=== PATIENT | male | born 1965 | race African-American/Black ===

== ENCOUNTER → 2016-11-08 | Day surgery (SDC) | payer MEDICARE, OTHER | LOC: RAD 13:25 | PROVIDERS: ATTEND Specialist | PROC: BP08ZZZ Plain Radiography of Right Shoulder (ICD-10-PCS; principal; 2016-11-08) | DX: M25.511 Pain in right shoulder (principal) | CPT/HCPCS: 73040; 77002 ==

== ENCOUNTER → 2016-11-09 | Outpatient (CLI) | payer MEDICARE, OTHER ==
--- NOTE | 2016-11-10 12:30 | XCELERA REPORT ---
[address] [address] Lower Extremity Arterial Evaluation Name: FLORENTIN RICHARDS Age: 51 yrs Gender: Male : 1965 Patient Status: Outpatient Patient Location: Study Date: 11/09/2016 10:16 AM Procedure: A color flow and duplex scan of the lower extremity arteries was performed bilaterally with velocity and waveform anaylsis. Ankle brachial indicies performed. Reason For Study: PVD Ordering Physician: RHONDA SHEETS Performed By: Aníbal Amador Measurements and Calculations Right Left WOOD PATTERNMAKER PSV 110.0 125.0 cm/sec Prox PFA PSV -113.9 -121.5 cm/sec Dist SFA PSV -94.3 -111.0 cm/sec Prox Pop A PSV 73.3 71.1 cm/sec Dist KEATON PSV 84.4 92.1 cm/sec Dist TRASHMAN PSV -69.9 -77.2 cm/sec Murali Pedis PSV 86.4 93.2 cm/sec Right Side Arterial Evaluation Normal velocity, waveform and triphasic flow are present, from the Common Femoral artery down to the infrageniculate vessels. The ankle-brachial index is 1.12. 0 % stenosis is noted PPG's are comnpletely normal.. Left Side Arterial Evaluation Normal velocity, waveform and triphasic flow are present, from the Common Femoral artery down to the infrageniculate vessels. The ankle-brachial index is 1.14. 0 % stenosis noted. PPG's are completely normal. Interpretation Summary No hemodynamically significant lesions in the bilateral lower extremities, on duplex imaging, at rest. : RHONDA SHEETS > Cody Taveras
== END ==
LOC: SP 10:01
PROVIDERS: ATTEND Podiatrist Foot & Ankle Surgery
DX: I73.9 Peripheral vascular disease, unspecified (principal)
CPT/HCPCS: 93925

== ENCOUNTER → 2017-02-21 | Outpatient (CLI) | payer MEDICARE, OTHER | LOC: OD 16:47 | PROVIDERS: ATTEND Specialist | DX: G40.89 Other seizures (principal); Z79.899 Other long term (current) drug therapy | CPT/HCPCS: 36415; 80175 ==

== ENCOUNTER 2017-10-18 12:19 | Emergency (ER) | payer MEDICARE, OTHER ==
[2017-10-18 12:26] VITALS: BP 130/78
--- NOTE | 2017-10-18 13:15 | ER Document Report ---
ED General - General Chief Complaint: Seizure Stated Complaint: POSSIBLE SEIZURES Time Seen by Provider: 10/18/17 12:55 Mode of Arrival: Ambulatory Information source: Patient, [facility] Records Notes: This 52-year-old male patient who has a vagal nerve stimulator for seizures, and is currently wearing a right walking boot for an Achilles tendon injury. He has had an upper respiratory tract infection he picked up from grandchildren and other visitors at his house 2 weeks ago. He has been coughing quite a lot. Review of records shows in 2011 I saw him for seizures, and had him cough which caused a coughing spasm and precipitated a generalized seizure. He saw his pulmonary medicine doctor recently and was put on a course of Zithromax, and then put on amoxicillin. He has 3 days left of the amoxicillin. He did receive a prescription for prednisone 20 mg #15 tablets but he never started taking that. He does have nebulizers and inhalers at home. He went to his primary care at the [facility] today due to his ongoing bronchitis and coughing. While he was there he had a coughing fit, and slipped on the slick floor due to the walking boot that he is wearing. They thought he might have had a seizure and called 911. He did not have a seizure, he remained alert and oriented the entire time. He was not postictal. They still insisted he go by EMS to the emergency room. He is here reluctantly. TRAVEL OUTSIDE OF THE [place] IN LAST 30 DAYS: No - Related Data Allergies/Adverse Reactions: acetaminophen [From Percocet] Allergy (Verified 10/18/17 12:24) oxycodone [From Percocet] Allergy (Verified 10/18/17 12:24) Past Medical History - General Information source: Patient, [facility] Records - Social History Smoking Status: Never Smoker Cigarette use (# per day): No Chew tobacco use (# tins/day): No Smoking Education Provided: No Frequency of alcohol use: None Drug Abuse: None Occupation: Retired Lives with: Family, Spouse/Significant other Family History: Reviewed & Not Pertinent Patient has suicidal ideation: No Patient has homicidal ideation: No - Past Medical History Cardiac Medical History: Reports: Hx Hypercholesterolemia, Hx Hypertension Pulmonary Medical History: Reports: Hx Asthma, Hx Bronchitis, Hx Sleep Apnea EENT Medical History: Reports: Eyes - Glaucoma, cataracts, uveitis Neurological Medical History: Reports: Hx Seizures Endocrine Medical History: Reports: None Renal/ Medical History: Reports: None GI Medical History: Reports: None Musculoskeltal Medical History: Reports None Skin Medical History: Reports None Psychiatric Medical History: Reports: Hx Depression Past Surgical History: Reports: Hx Neurologic Surgery - Vagal nerve stimulator for seizure disorder, Hx Orthopedic Surgery - R Rotator cuff, Hx Rectal Surgery - Polyplectomy, Other - Bilateral eye surgery, probably cataract removal - Immunizations Hx Diphtheria, Pertussis, Tetanus Vaccination: No Hx Pneumococcal Vaccination: 07/12/16 Review of Systems - Review of Systems Constitutional: No symptoms reported EENT: Nose congestion, Nose discharge, Sinus pressure, Other - Hoarse voice with current URI Cardiovascular: No symptoms reported Respiratory: Cough, Short of breath, Wheezing. denies: Sputum Gastrointestinal: No symptoms reported Genitourinary: No symptoms reported Musculoskeletal: Other - Recent right Achilles tendon tear, wears a walking boot Skin: No symptoms reported Hematologic/Lymphatic: No symptoms reported Neurological/Psychological: No symptoms reported Physical Exam - Vital signs Vitals: Temp Pulse Resp BP Pulse Ox 98.5 F 76 20 130/78 H 97 10/18/17 12:25 10/18/17 12:25 10/18/17 12:25 10/18/17 12:25 10/18/17 12:25 Interpretation: Normal - General General appearance: Appears well, Alert Notes: Patient has periodic uncontrollable coughing spasms. - HEENT Head: Normocephalic, Atraumatic Eyes: Normal Pupils: PERRL - Respiratory Respiratory status: No respiratory distress Breath sounds: Nonproductive cough, Rhonchi, Wheezing Chest palpation: Normal, Subcutaneous emphysema - Cardiovascular Rhythm: Regular Heart sounds: Normal auscultation Murmur: No - Abdominal Inspection: Normal Bowel sounds: Normal Tenderness: Nontender - Back Back: Normal - Extremities General upper extremity: Normal inspection General lower extremity: Other - Walking boot on the right ankle and foot - Neurological Neuro grossly intact: Yes - Psychological Associated symptoms: Normal affect, Normal mood - Skin Skin Temperature: Warm Skin Moisture: Dry Skin Color: Normal Course - Re-evaluation Re-evalutation: 10/18/17 13:18 Discharge the patient states that he is not sure where the prednisone is in his house that he was given just recently to take if needed. Records show that he received 15 tablets of prednisone 20 mg. He does feel confident that he can find the medication back tomorrow so we will give him his prednisone dose here before he leaves. - Vital Signs Vital signs: Temp Pulse Resp BP Pulse Ox 98.5 F 76 20 130/78 H 97 10/18/17 12:25 10/18/17 12:25 10/18/17 12:25 10/18/17 12:25 10/18/17 12:25 Discharge - Discharge Clinical Impression: Bronchitis, Laryngitis, Viral upper respiratory tract infection with cough Condition: Stable Disposition: HOME, SELF-CARE Additional Instructions: Bronchitis with Bronchospasm (Wheezing): You have bronchitis with bronchospasm (wheezing). Sometimes people develop wheezing with a chest cold. This occurs either because of an underlying tendency toward asthma or because the virus itself irritates the bronchial tubes. This irritation causes cough, shortness of breath, and wheezing. Emergency treatment of bronchospasm may include adrenaline shots or bronchodilator aerosol. You may feel lightheaded and have a rapid pulse for an hour or two. Rest and get plenty of fluids. At home, we'll treat you with a bronchodilator inhaler. Corticosteroids may be required for some patients. Until you recover, avoid chemical fumes, dusts, pollens, and exercising in very cold or dry air. If you smoke, stop now! Most cases of bronchitis get better without antibiotics. We prescribe antibiotics when we believe bacteria are damaging your airways, or if there's high risk the bronchitis will worsen into pneumonia. Increase your fluid intake. A cool mist humidifier may make your lungs more comfortable. An expectorant (cough medicine that loosens phlegm) can help. Repeated episodes of bronchitis and bronchospasm may result in lung damage -- for example, chronic bronchitis, recurrent pneumonias, or emphysema. If you develop a fever, increased wheezing, chest pain, or severe shortness of breath, you should contact the doctor immediately. Laryngitis: You have laryngitis. This is an inflammation of the vocal cords which leads to inability to speak normally. Any irritation to the airway can cause laryngitis. Causes include virus infection, smoke inhalation, allergy, or even trauma due to excessive talking or shouting. Rest your voice. Any vibration of the vocal cords increases and prolongs the swelling. Humidity is helpful, especially cool mist. Avoid dust, chemical fumes, and smoke. Avoid decongestants and antihistamines -- these will make you worse. You can expect to recover completely in a few days. See the physician if new symptoms develop, such as high fever, productive cough, shortness of breath, or if you do not improve within a few days. //////////////////////////////////////////////////////////////////////////////// //////////////////////////////////////////////////////////////////////////////// ////////////////// You were given today's dose of prednisone here in the emergency room. Starting tomorrow, take 1 prednisone 20 mg tablet every 8 hours. Start taking your Tessalon Perles for cough suppression. Try taking Robitussin-DM to help suppress your cough if the prednisone and the Tessalon Perles are not enough. Drink plenty of fluids get plenty of rest. Try to limit talking as much as possible to rest your vocal cords. Use your inhaler and nebulizers as needed for wheezing. Follow-up with your doctors this week if not improving. RETURN TO THE EMERGENCY ROOM IF ANY NEW OR WORSENING SYMPTOMS.
[2017-10-18] MEDS ORDERED: PREDNISONE 20 MG TABLET PO ONE (13:18)
== END 2017-10-18 13:24 | disposition home or self-care (01) ==
LOC: ER 12:19
DX: J40 Bronchitis, not specified as acute or chronic (principal); J04.0 Acute laryngitis; J06.9 Acute upper respiratory infection, unspecified; B97.89 Other viral agents as the cause of diseases classified elsewhere; R05 Cough; W01.0XXA Fall on same level from slipping, tripping and stumbling without subsequent striking against object, initial encounter; Z79.899 Other long term (current) drug therapy
CPT/HCPCS: 99283; A9270; J7512

== ENCOUNTER 2018-07-13 10:02 | Day surgery (SDC) | payer OTHER, MEDICARE ==
[2018-07-13] MEDS ORDERED: PROPOFOL INJ 200 MG/20 ML VIAL IV ONE (11:20)
[2018-07-13 13:48] VITALS: BP 108/74
--- NOTE | 2018-07-13 14:06 | Operative Report ---
Operative Report DATE OF SURGERY: 07/13/18 Operative Report: The risks, benefits and alternatives of the procedure including the risks of bleeding, perforation requiring surgery are explained to the patient in detail and informed consent is obtained. Patient is brought back to the operating room and placed in the left, lateral decubital position. Timeout was called. Propofol medication is administered. A rectal examination is done which did not reveal any masses, tears or fissures. An Olympus videoscope was inserted into the patient's rectum. The scope was then carefully advanced all the way to the cecum. The cecum was identified by the usual anatomical landmarks including the ileocecal valve as well as appendiceal office. Photodocumentation is obtained. Scope was then sequentially pulled back via the various segments of the colon including the ascending colon, hepatic flexure , transverse colon, splenic flexure, descending colon and finally into the rectosigmoid portions of the colon. Retroflexion maneuvers performed. The risks benefits and alternatives of the procedure explained to the patient in detail and informed consent is obtained.A GIF Olympus video scope was inserted into the patient's mouth and hypopharynx, the esophagus is identified intubated and insufflated, the scope was then advanced through the esophagus stomach and duodenum, retroflexion maneuver is done the esophagus stomach and first and second portions of the duodenum examined PREOPERATIVE DIAGNOSIS: Personal history of polyp. Gastroesophageal reflux disease POSTOPERATIVE DIAGNOSIS: Internal hemorrhoids. Right colon inflammation status post biopsy. Descending colon polyp status post biopsy. Gastritis status post biopsy rule out Helicobacter pylori OPERATION: Colonoscopy with biopsy. EGD with biopsy SURGEON: ALAN SCHAFER ANESTHESIA: LMAC TISSUE REMOVED OR ALTERED: As noted above. COMPLICATIONS: None. ESTIMATED BLOOD LOSS: None. INTRAOPERATIVE FINDINGS: As noted above. PROCEDURE: Patient tolerated the procedure well. No immediate postprocedure complications are noted. Patient discharged in good condition. Discharge date 07/13/2018. Discharge diet: Regular. Discharge activity: Regular. 2-3-week follow-up to discuss findings. Patient is instructed to call the office or proceed to the emergency room should there be any further problems or questions. 5-year surveillance colonoscopy.
== END 2018-07-13 13:48 | disposition home or self-care (01) ==
LOC: OROUT 10:02
PROVIDERS: ATTEND Internal Medicine Gastroenterology
DX: Z12.11 Encounter for screening for malignant neoplasm of colon (principal); D12.4 Benign neoplasm of descending colon; K52.9 Noninfective gastroenteritis and colitis, unspecified; K64.4 Residual hemorrhoidal skin tags; Z86.010 Personal history of colon polyps; K29.50 Unspecified chronic gastritis without bleeding; K21.9 Gastro-esophageal reflux disease without esophagitis; E78.5 Hyperlipidemia, unspecified; J45.909 Unspecified asthma, uncomplicated; I10 Essential (primary) hypertension; G89.4 Chronic pain syndrome; G40.909 Epilepsy, unspecified, not intractable, without status epilepticus; G47.30 Sleep apnea, unspecified; Z99.81 Dependence on supplemental oxygen
CPT/HCPCS: 43239; 45380; 88305 ×2; J2704; 813

== ENCOUNTER → 2019-09-21 | Outpatient (CLI) | payer MEDICARE, OTHER ==
--- NOTE | 2019-09-21 16:24 | RADIOLOGY REPORT (SQ) ---
EXAM DESCRIPTION: MRI HEAD COMBO COMPLETED DATE/TIME: 09/21/2019 10:57 am REASON FOR STUDY: LOCAL-REL SYMPTC EPI W CMPLX PARTIAL SEIZ, NTRCT, W STAT EPI (G40.211) G40.211 LO EUGENIO-REL SYMPTC EPI W CMPLX PARTIAL SEIZ, NTRCT, W COMPARISON: 04/21/2015. TECHNIQUE: Multiplanar imaging includes noncontrasted T1, T2, FLAIR, and Diffusion with ADC map seq uences. Contrast enhanced T1 images. Images stored on PACS. CONTRAST TYPE AND DOSE: 20 mL Dotarem. RENAL FUNCTION: GFR > 60. LIMITATIONS: None. FINDINGS: ANATOMY: No anomalies. Normal vascular flow voids. Pituitary fossa normal. CSF SPACES: Normal size and contour. No hemorrhage. CEREBRUM: A few high-signal intensity lesions scattered throughout the white matter on FLAIR imaging with distribution suggesting chronic microvascular ischemic change. Sulci and gyri normal in size and contour. No evidence of hemorrhage, mass or extraaxial fluid collection. No enhancing lesions. POSTERIOR FOSSA: No signal alteration. No hemorrhage. No edema, masses or mass effect. Internal audit ory canals, cerebello-pontine angles, mastoids normal. DIFFUSION: Negative for acute or subacute infarction. ORBITS: No masses. Globes normal. PARANASAL SINUSES: No fluid levels. Mucosa normal. OTHER: No other significant finding. IMPRESSION: NO ENHANCING LESIONS. MINIMAL MICROVASCULAR ISCHEMIC CHANGE. OTHERWISE NORMAL STUDY. EVIDENCE OF ACUTE STROKE: NO. TECHNICAL DOCUMENTATION: JOB ID: [id number] [employer]- All Rights Reserved Reading location - IP/workstation name: [email or web address]
== END ==
LOC: RAD 09:20
PROVIDERS: ATTEND Specialist
DX: G40.211 Localization-related (focal) (partial) symptomatic epilepsy and epileptic syndromes with complex partial seizures, intractable, with status epilepticus (principal)
CPT/HCPCS: 96372; 82565; 70553; A9576

== ENCOUNTER 2019-11-29 08:25 | Observation (INO) | payer OTHER, MEDICARE ==
[2019-11-29 09:16] LABS: ABSOLUTE EOSINOPHILS # (AUTO) 0.1 10^3/uL (0.0-0.6); ABSOLUTE LYMPHOCYTES (AUTO) 2.4 10^3/uL (0.5-4.7); ABSOLUTE MONOCYTES (AUTO) 0.5 10^3/uL (0.1-1.4); ABSOLUTE NEUT (AUTO) 4.2 10^3/uL (1.7-8.2); BASOPHILS % (AUTO) 0.3 % (0-2); HEMATOCRIT 39.3 % (37.9-51.0); HEMOGLOBIN 13.1 g/dL (13.5-17.0); LYMPHOCYTES % (AUTO) 32.7 % (13-45); MEAN CORPUSCULAR HGB CONC 33.3 g/dL (32.0-36.0); MEAN CORPUSCULAR VOLUME 78 fl (80-97); MONOCYTES % (AUTO) 7.3 % (3-13); PLATELET COUNT 266 10^3/uL (150-450); RED BLOOD COUNT 5.04 10^6/uL (4.35-5.55); RED CELL DISTRIBUTION WIDTH 14.2 % (11.5-14.0); SEGMENTED NEUTROPHILS % (AUTO) 58.7 % (42-78); TOTAL CELLS COUNTED % (AUTO) 100 %; WHITE BLOOD COUNT 7.2 10^3/uL (4.0-10.5)
[2019-11-29 09:28] LABS: APPEARANCE,URINE CLEAR; BILIRUBIN,URINE NEGATIVE (NEGATIVE); COLOR,URINE YELLOW; GLUCOSE, URINE NEGATIVE (NEGATIVE); KETONES,URINE NEGATIVE (NEGATIVE); LEUKOCYTE ESTERASE,URINE NEGATIVE (NEGATIVE); NITRITE,URINE NEGATIVE (NEGATIVE); PROTEIN,URINE NEGATIVE (NEGATIVE); URINE SPECIFIC GRAVITY 1.014; UROBILINOGEN,URINE NEGATIVE mg/dL (<2.0)
[2019-11-29 09:36] LABS: ALBUMIN 3.8 g/dL (3.5-5.0); ALKALINE PHOSPHATASE 72 U/L (38-126); ANION GAP 8 (5-19); ASPARTATE AMINO TRANSFERASE 20 U/L (17-59); BILIRUBIN,TOTAL 0.4 mg/dL (0.2-1.3); BLOOD UREA NITROGEN 11 mg/dL (7-20); CALCIUM 8.9 mg/dL (8.4-10.2); CARBON DIOXIDE 28 mmol/L (22-30); CHLORIDE 104 mmol/L (98-107); GLUCOSE 140 mg/dL (75-110); POTASSIUM 3.6 mmol/L (3.6-5.0); TOTAL PROTEIN 6.9 g/dL (6.3-8.2)
--- NOTE | 2019-11-29 10:10 | RADIOLOGY REPORT (SQ) ---
EXAM DESCRIPTION: CHEST 2 VIEWS COMPLETED DATE/TIME: 11/29/2019 9:46 am REASON FOR STUDY: sob COMPARISON: PA and lateral views of the chest from 07/05/2016. EXAM PARAMETERS: NUMBER OF VIEWS: Two views. TECHNIQUE: PA and lateral views of the chest were obtained.. RADIATION DOSE: NA LIMITATIONS: none FINDINGS: LUNGS AND PLEURA: No consolidation, pleural effusion or pneumothorax. MEDIASTINUM AND HILAR STRUCTURES: No mediastinal or hilar contour abnormality. HEART AND VASCULAR STRUCTURES: The cardiac silhouette and pulmonary vasculature are within normal gonzalez its. BONES: No acute findings. HARDWARE: Vagus nerve stimulator ; the generator pack projects within the left upper hemithorax. OTHER: No other finding. IMPRESSION: No acute cardiopulmonary process. TECHNICAL DOCUMENTATION: JOB ID: [id number] 2010 [employer]- All Rights Reserved Reading location - IP/workstation name: [email or web address]
[2019-11-29] MEDS ORDERED: MAGNESIUM SULFATE/D5W 1 GM/100 ML RTUPB IV ONE (12:26)
[2019-11-29] MEDS ORDERED: IPRATROPIUM/ALBUTEROL 0.5-2.5 MG/3 ML AMPUL NEB ONE (12:26)
[2019-11-29] MEDS ORDERED: HYDROCODONE BIT/HOMATROPINE SYRUP 5 ML UDCUP PO STA (12:27)
[2019-11-29] MEDS ORDERED: HYDROCODONE BIT/HOMATROPINE 5-1.5 MG TABLET PO ONE (13:15)
--- NOTE | 2019-11-29 13:30 | RADIOLOGY REPORT (SQ) ---
EXAM DESCRIPTION: CT CHEST WITHOUT COMPLETED DATE/TIME: 11/29/2019 1:04 pm REASON FOR STUDY: bloody cough COMPARISON: PA and lateral views of the chest from 11/29/2019. TECHNIQUE: CT scan performed of the chest without intravenous contrast. Images reviewed with lung, soft tissue and bone windows. Reconstructed coronal and sagittal MPR images reviewed. All images st ored on PACS. All CT scanners at this facility use dose modulation, iterative reconstruction, and/or weight based d osing when appropriate to reduce radiation dose to as low as reasonably achievable (ALARA). [facility]: Dose Right [facility]: CareDose [facility]: Dose Right [facility]: Teradose 4D [facility]: Skyeng RADIATION DOSE: CT Rad equipment meets quality standard of care and radiation dose reduction techniq ues were employed. CTDIvol: 20.4 mGy. DLP: 775 mGy-cm. LIMITATIONS: No technical limitations. FINDINGS: LUNGS AND PLEURA: The trachea main bronchi are patent. There is no bronchiectasis, bronch ial wall thickening or segmental mucus plugging. There is no consolidation, ground-glass opacification, pleural effusion, pleural thickening, or great er than 6 mm pulmonary nodular mass. HILAR AND MEDIASTINAL STRUCTURES: Evaluation is limited due to the absence of intra venous contrast. The thoracic esophagus is patulous. There is no mediastinal mass or adenopathy. HEART AND VASCULAR STRUCTURES: Variant 2 vessel arch. The thoracic aorta is normal in caliber. Ther e is no cardiomegaly or pericardial effusion. UPPER ABDOMEN: No abnormality. THYROID AND OTHER SOFT TISSUES: The generator pack of vagus stimulator is located anterior to the lef t pectoralis major. BONES: No acute findings. HARDWARE: None in the chest. OTHER: No other findings. IMPRESSION: No acute cardiopulmonary process. TECHNICAL DOCUMENTATION: JOB ID: [id number] Quality ID # [id number]: Final reports with documentation of one or more dose reduction techniques (e.g., Au tomated exposure control, adjustment of the mA and/or kV according to patient size, use of iterative reconstruction technique) 2010 [employer]- All Rights Reserved Reading location - IP/workstation name: [email or web address] [email or web address] [email or web address]
[2019-11-29 14:18] LABS: A TYPE INFLUENZA AG NEGATIVE (NEGATIVE); B INFLUENZA AG NEGATIVE (NEGATIVE)
--- NOTE | 2019-11-29 14:20 | ER Document Report ---
ED General - General Chief Complaint: Cough Stated Complaint: COUGHING BLOOD Time Seen by Provider: 11/29/19 09:58 Primary Care Provider: SENG LOWRY PA-C [Primary Care Provider] - Follow up as needed Mode of Arrival: Ambulatory Information source: Patient Notes: Patient is a 54-year-old male presenting to the emergency department chief complaint of cough and shortness of breath. Patient states that this started approximately 2 weeks ago. Patient states that he was in [facility] at a [place] and around multiple people that were sick and coughing. Patient states that he is seen his family physician twice and had multiple adjustments to medications and instead of getting better the cough is getting worse. Patient states that he is coughing up moderate amount of blood. No one else at home is ill similarly. Patient denies nausea vomiting or diarrhea. TRAVEL OUTSIDE OF THE [place] IN LAST 30 DAYS: No - HPI Onset: Other - 2 weeks Onset/Duration: Gradual, Persistent, Worse Quality of pain: Pressure, Sharp Severity: Moderate Pain Level: 2 Associated symptoms: Hoarseness, Hurts to breath, Shortness of breath Exacerbated by: Movement, Walking, Coughing, Deep breathing Relieved by: Denies Similar symptoms previously: Yes Recently seen / treated by doctor: Yes - Related Data Allergies/Adverse Reactions: oxycodone Allergy (Unknown, Verified 11/29/19 08:35) Past Medical History - General Information source: Patient - Social History Smoking Status: Never Smoker Frequency of alcohol use: None Drug Abuse: None Lives with: Family Family History: Reviewed & Not Pertinent Patient has suicidal ideation: No Patient has homicidal ideation: No - Past Medical History Cardiac Medical History: Reports: Hx Coronary Artery Disease, Hx Hypercholesterolemia, Hx Hypertension Denies: Hx Heart Attack Pulmonary Medical History: Reports: Hx Asthma, Hx Pneumonia, Hx Sleep Apnea Denies: Hx Bronchitis, Hx COPD Neurological Medical History: Reports: Hx Seizures. Denies: Hx Cerebrovascular Accident Renal/ Medical History: Denies: Hx Peritoneal Dialysis Musculoskeletal Medical History: Reports Hx Arthritis Psychiatric Medical History: Reports: Hx Depression Past Surgical History: Reports: Hx Neurologic Surgery - Vagal nerve stimulator for seizure disorder, Hx Orthopedic Surgery - R Rotator cuff, Hx Rectal Surgery - Polyplectomy, Other - Bilateral eye surgery, probably cataract removal. Denies: Hx Pacemaker - Immunizations Hx Diphtheria, Pertussis, Tetanus Vaccination: No Hx Pneumococcal Vaccination: 07/12/16 Review of Systems - Review of Systems Notes: REVIEW OF SYSTEMS: CONSTITUTIONAL : Per HPI EENT: Denies eye, ear, throat, or mouth pain or symptoms. Denies nasal or sinus congestion. CARDIOVASCULAR: Denies chest pain. RESPIRATORY: Per HPI GASTROINTESTINAL: Denies abdominal pain. Denies nausea, vomiting, or diarrhea. Denies constipation. GENITOURINARY: Denies difficulty urinating, painful urination, burning, f requency, or blood in urine. MUSCULOSKELETAL: Denies neck or back pain or joint pain or swelling. SKIN: Denies rash or skin lesions. HEMATOLOGIC : Denies easy bruising or bleeding. NEUROLOGICAL: Denies altered mental status or loss of consciousness. Denies headache. Denies weakness or paralysis or loss of use of either side. Denies problems with gait or speech. Denies sensory or motor loss. PSYCHIATRIC: Denies suicidal or homicidal ideations 10 Systems are negative unless otherwise specified above Physical Exam - Vital signs Vitals: Temp Pulse Resp BP Pulse Ox 97.7 F 80 24 H 154/81 H 95 11/29/19 08:28 11/29/19 08:28 11/29/19 08:28 11/29/19 08:28 11/29/19 08:28 - Notes Notes: PHYSICAL EXAMINATION: GENERAL: Patient is alert and oriented in mild to moderate discomfort secondary to shortness of breath and cough HEAD: Atraumatic, normocephalic. EYES: Pupils equal round and reactive to light, extraocular movements intact, sclera anicteric, conjunctiva are normal. ENT: nares patent, oropharynx clear without exudates. Moist mucous membranes. NECK: Normal range of motion, supple without lymphadenopathy, no appreciable JVD LUNGS: Lungs demonstrate wheezing in all baltazar both inspiratory and expiratory deep inspiration does elicit a cough response which is paroxysmal HEART: Regular rate and rhythm without murmurs ABDOMEN: Soft, nontender, normal bowel sounds. No guarding, no rebound. No masses appreciated. EXTREMITIES: Active full range of motion, no pitting or edema. No cyanosis. 2+ pulses x4 NEUROLOGICAL: No focal neurological deficits. Moves all extremities spontaneously and on command. SKIN: Warm, Dry, and intact. Normal turgor, no rashes or lesions noted. Course - Re-evaluation Re-evalutation: 11/29/19 14:18 Patient has been reevaluated multiple times while in the emergency department. Labs EKG and radiologic studies were initially reviewed by me. Discussing with the patient his recent travel history and sick exposures concern for coronavirus did come to mind I have spoken with Dr. Lopez infectious disease she requested a repeat influenza test in the emergency department and is in agreement with admission and follow-up through health department for ascertaining the need for testing for coronavirus. Patient is agreeable with care plan. Droplet and respiratory isolation has been initiated after discussing the case with the patient. CT of the chest as well as chest x-ray do not show any significant findings. Patient has been given DuoNeb x1 has been taking steroids at home is given Hycodan tablet in the emergency department as well as a gram of mag sulfate IV to assist with suppressing the cough and easing the respiratory distress. I have discussed the case with the hospitalist and he is agreeable with adm ission for obs to a medical floor. - Vital Signs Vital signs: Temp Pulse Resp BP Pulse Ox 97.7 F 80 24 H 147/92 H 97 11/29/19 08:28 11/29/19 08:28 11/29/19 08:28 11/29/19 11:01 11/29/19 11:01 - Laboratory Result Diagrams: 11/29/19 09:00 11/29/19 09:00 Laboratory results interpreted by me: 11/29/19 11/29/19 11/29/19 09:00 09:00 09:00 Hgb 13.1 L MCV 78 L MCH 26.0 L RDW 14.2 H Glucose 140 H Urine Blood SMALL H - Diagnostic Test Radiology reviewed: Reports reviewed - EKG Interpretation by Me EKG shows normal: Sinus rhythm Rate: Normal Rhythm: NSR Additional EKG results interpreted by me: 11/29/19 14:18 EKG is interpreted by me demonstrates sinus rhythm 76 bpm there is left axis deviation there is no ectopy no ST elevation no old EKG for comparison. Critical Care Note - Critical Care Note Total time excluding time spent on procedures (mins): 40 Comments: Please allow 40 minutes of critical care time exclusive of separately billable procedures for medical management consultation with patient and adjunct providers and care for this respiratory patient. Discharge - Discharge Clinical Impression: Bronchitis, Hemoptysis Condition: Fair Disposition: ADMITTED OBSERVATION Admitting Provider: Anjana (Hospitalist) Unit Admitted: Medical Floor Referrals: SENG LOWRY PA-C [Primary Care Provider] - Follow up as needed
[2019-11-29] MEDS ORDERED: ONDANSETRON HCL INJ/PF 4 MG/2 ML SDV IV PRN (16:04)
[2019-11-29] MEDS ORDERED: NORMAL SALINE 1000 ML 1,000 ML IV ONE (16:14)
[2019-11-29] MEDS ORDERED: AZITHROMYCIN 250 MG TABLET PO ONE (16:18)
--- NOTE | 2019-11-29 16:33 | PDOC H&P ---
History of Present Illness Admission Date/PCP: 11/29/19 14:29 SENG LOWRY PA-C Patient complains of: hemoptysis, cough History of Present Illness: FLORENTIN RICHARDS is a 54 year old male asthma, seasonal allergies, BANDAR on CPAP, epilepsy, headaches and Botox, hypertension, hyperlipidemia, who presents to the hospital with complaints of persistent cough. Patient has been having nonproductive cough for the past 10 days with sputum production and developed hemoptysis yesterday. Patient claims he was recently taking a trip to [place] and went to the [facility] with his and subsequently became sick on return to [place]. Patient denies any other trips to any other locations recently. Patient admitted to initially having some fevers and chills which have both resolved at this time but the cough has persisted. He had tried Tessalon Perls, prednisone 60 mg for 3 days outpatient with his primary care provider but without subsequent improvement. Did develop some dyspnea a few days ago as well. Past Medical History Cardiac Medical History: Reports: Hyperlipidema, Hypertension Denies: Myocardial Infarction Pulmonary Medical History: Reports: Asthma, Pneumonia, Sleep Apnea Denies: Bronchitis, Chronic Obstructive Pulmonary Disease (COPD) Neurological Medical History: Reports: Seizures Musculoskeltal Medical History: Reports: Arthritis Hematology: Denies: Anemia Past Surgical History Past Surgical History: Reports: Orthopedic Surgery - R Rotator cuff, Other - Bilateral eye surgery, probably cataract removal Denies: Pacemaker Social History Lives with: Family Smoking Status: Never Smoker Frequency of Alcohol Use: None Hx Recreational Drug Use: No - Advance Directive Resuscitation Status: Full Code Family History Family History: Hypertension Parental Family History Reviewed: Yes Children Family History Reviewed: NA Sibling(s) Family History Reviewed.: NA Medication/Allergy Home Medications: Lamictal 400 mg PO QPM 12/02/11 Vimpat 40 mg PO AC 12/02/11 Amlodipine Besylate/Benazepril [Lotrel 10-20 mg Capsule] 1 cap PO QPM 08/02/16 Brimonidine Tartrate [Alphagan 0.2% Oph Soln 5 ml] 1 drop OP DAILY PRN 08/02/16 Budesonide/Formoterol Fumarate [Symbicort HFA 160-4.5 mcg Inhaler 6 gm] 2 inhaler IN BID 08/02/16 Dorzolamide HCl [Trusopt Plus 2% Oph Soln 10 ml] 200 drop OP BID 08/02/16 Rosuvastatin Calcium [Crestor 10 mg Tablet] 10 mg PO QPM 08/02/16 Allergies/Adverse Reactions: oxycodone Allergy (Unknown, Verified 11/29/19 08:35) Review of Systems Constitutional: ABSENT: fatigue Eyes: ABSENT: visual disturbances Nose, Mouth, and Throat: ABSENT: headache(s) Cardiovascular: ABSENT: chest pain Respiratory: PRESENT: cough, dyspnea, hemoptysis, sputum Gastrointestinal: ABSENT: abdominal pain, nausea, vomiting Genitourinary: ABSENT: dysuria Integumentary: ABSENT: diaphoresis Neurological: ABSENT: confusion Psychiatric: ABSENT: anxiety Endocrine: ABSENT: polyuria Allergic/Immunologic: PRESENT: seasonal rhinorrhea Physical Exam Vital Signs: Temp Pulse Resp BP Pulse Ox 98.2 F 80 24 H 147/92 H 97 11/29/19 14:25 11/29/19 08:28 11/29/19 08:28 11/29/19 11:01 11/29/19 11:01 Intake & Output 11/28/19 11/29/19 11/30/19 06:59 06:59 06:59 Intake Total 100 Balance 100 Weight 135 kg General appearance: PRESENT: no acute distress, cooperative Head exam: PRESENT: normocephalic Eye exam: PRESENT: EOMI Mouth exam: PRESENT: neck supple Neck exam: ABSENT: JVD Respiratory exam: PRESENT: clear to auscultation saman, unlabored. ABSENT: tachypnea, wheezes Cardiovascular exam: PRESENT: RRR, +S1, +S2. ABSENT: tachycardia GI/Abdominal exam: PRESENT: normal bowel sounds, soft. ABSENT: rebound, rigid, tenderness Extremities exam: ABSENT: pedal edema Neurological exam: PRESENT: alert, awake, oriented to person, oriented to place, oriented to time, oriented to situation Psychiatric exam: ABSENT: agitated, anxious Focused psych exam: ABSENT: pressured speech Skin exam: ABSENT: dry Results Laboratory Results: 11/29/19 09:00 11/29/19 09:00 11/29/19 11/29/19 11/29/19 09:00 09:00 09:00 WBC 7.2 RBC 5.04 Hgb 13.1 L Hct 39.3 MCV 78 L MCH 26.0 L MCHC 33.3 RDW 14.2 H Plt Count 266 Seg Neutrophils % 58.7 Sodium 140.1 Potassium 3.6 Chloride 104 Carbon Dioxide 28 Anion Gap 8 BUN 11 Creatinine 0.78 Est GFR ( Amer) > 60 Glucose 140 H Calcium 8.9 Total Bilirubin 0.4 AST 20 Alkaline Phosphatase 72 Total Protein 6.9 Albumin 3.8 Urine Color YELLOW Urine Appearance CLEAR Urine pH 6.0 Ur Specific [place] 1.014 Urine Protein NEGATIVE Urine Glucose (UA) NEGATIVE Urine Ketones NEGATIVE Urine Blood SMALL H Urine Nitrite NEGATIVE Ur Leukocyte Esterase NEGATIVE Urine WBC (Auto) 1 Urine RBC (Auto) 3 Impressions: Chest X-Ray 11/29/19 00:00 IMPRESSION: No acute cardiopulmonary process. Chest CT 11/29/19 12:26 IMPRESSION: No acute cardiopulmonary process. Assessment and Plan - Diagnosis (1) Acute bronchitis Qualifiers: Bronchitis organism: unspecified organism Qualified Code(s): J20.9 - Acute bronchitis, unspecified Is this a current diagnosis for this admission?: Yes Plan: Hemoptysis is likely 2/2 acute bronchitis possibly bacterial given duration. Will hydrate patient with IV fluids in place and antitussive medications with Robitussin-DM and codeine. Azithromycin for 5-day course p.o. Steroids I reviewed CT chest image which shows no active disease in the lungs Patient does not need isolation Quantify hemoptysis with graduated cup Will observe overnight (2) Hemoptysis Is this a current diagnosis for this admission?: Yes Plan: Likely secondary to acute bronchitis. Plan as above. (3) Asthma, chronic Qualifiers: Asthma severity: unspecified severity Asthma persistence: unspecified A sthma complication type: with acute exacerbation Qualified Code(s): J45.901 - Unspecified asthma with (acute) exacerbation Is this a current diagnosis for this admission?: Yes Plan: Noted to be wheezing in the emergency home by ER provider. Did receive some breathing treatments as well as 125 mg of Solu-Medrol and magnesium sulfate. Currently no wheezing. Will put on frequent nebulizer treatments for possible exacerbation though wheezing is improved at this time. Already receiving steroids for bronchitis. (4) Hypertension Qualifiers: Hypertension type: essential hypertension Qualified Code(s): I10 - Essential (primary) hypertension Is this a current diagnosis for this admission?: Yes Plan: Continue patient's home medications once medication reconciliation is completed. (5) BANDAR on CPAP Is this a current diagnosis for this admission?: Yes Plan: Nocturnal CPAP (6) Epilepsy Is this a current diagnosis for this admission?: Yes Plan: We will resume patient's antiepileptics - Time Time Spent with patient: 35 or more minutes
[2019-11-29] MEDS: GUAIFENESIN/D-METHORPHAN (200-20 MG) SYRUP 10 ML PO SCH ×2 (17:16→22:42)
[2019-11-29] MEDS: CODEINE SULF 30 MG TABLET PO SCH (17:16)
[2019-11-29] MEDS: IPRATROPIUM/ALBUTEROL 0.5-2.5 MG/3 ML AMPUL NEB SCH (19:41)
--- NOTE | 2019-11-29 19:43 | EKG REPORT ---
SEVERITY:- ABNORMAL ECG - SINUS RHYTHM LEFT ANTERIOR FASCICULAR BLOCK BORDERLINE T ABNORMALITIES, INFERIOR LEADS : Confirmed by: Elda Daniel MD 29-Nov-2019 19:43:03
[2019-11-29] MEDS: NORMAL SALINE 1000 ML 1,000 ML IV PRN (19:46)
[2019-11-29] MEDS ORDERED: LORAZEPAM 1 MG TABLET PO PRN (21:13)
[2019-11-29] MEDS ORDERED: POLYVINYL ALCOHOL 1.4% OPH SOLN 15 ML OU PRN (21:13)
[2019-11-29] MEDS ORDERED: AMLODIPINE BESYLATE 10 MG TABLET PO SCH (22:00)
[2019-11-29] MEDS ORDERED: BENAZEPRIL HCL 20 MG TABLET PO SCH (22:00)
[2019-11-29] MEDS: FLUTICASONE NASAL SPRAY 50 MCG/SPRY 120 SPRAY/16 GM NASL SCH (22:38)
[2019-11-30] MEDS: CODEINE SULF 30 MG TABLET PO SCH ×3 (00:18→11:08)
[2019-11-30] MEDS: IPRATROPIUM/ALBUTEROL 0.5-2.5 MG/3 ML AMPUL NEB SCH ×2 (01:25→08:39)
[2019-11-30] MEDS ORDERED: PANTOPRAZOLE SODIUM 40 MG TABLET.DR PO SCH (08:00)
[2019-11-30 09:38] VITALS: BP 128/82
[2019-11-30] MEDS ORDERED: LAMOTRIGINE 100 MG TABLET PO SCH ×2 (10:00→22:00)
[2019-11-30] MEDS ORDERED: AZITHROMYCIN 250 MG TABLET PO SCH (10:00)
[2019-11-30] MEDS ORDERED: VALACYCLOVIR HCL 500 MG TABLET PO SCH (10:00)
[2019-11-30] MEDS ORDERED: METHYLPREDNISOLONE INJ 40 MG/1 ML SDV IV SCH (10:00)
[2019-11-30] MEDS ORDERED: PREDNISOLONE ACETATE 1% OPH SUSP 5 ML OU SCH (10:00)
[2019-11-30] MEDS: FLUTICASONE NASAL SPRAY 50 MCG/SPRY 120 SPRAY/16 GM NASL SCH (11:07)
[2019-11-30] MEDS: GUAIFENESIN/D-METHORPHAN (200-20 MG) SYRUP 10 ML PO SCH (11:20)
[2019-11-30] MEDS: NORMAL SALINE 1000 ML 1,000 ML IV PRN (11:23)
--- NOTE | 2019-11-30 12:48 | PDOC DISCHARGE SUMMARY ---
Impression - Admit/DC Date/PCP Admission Date/Primary Care Provider: 11/29/19 14:29 SENG LOWRY PA-C Discharge Date: 11/30/19 - Discharge Diagnosis (1) Acute bronchitis Is this a current diagnosis for this admission?: Yes (2) Hemoptysis Is this a current diagnosis for this admission?: Yes (3) Asthma, chronic Is this a current diagnosis for this admission?: Yes (4) Hypertension Is this a current diagnosis for this admission?: Yes (5) BANDAR on CPAP Is this a current diagnosis for this admission?: Yes (6) Epilepsy Is this a current diagnosis for this admission?: Yes - Additional Information Resuscitation Status: Full Code Discharge Diet: As Tolerated Discharge Activity: Activity As Tolerated Referrals: [facility] [NO LOCAL MD] - 12/07/19 8:30 am [facility] Prescriptions: Codeine Sulf [Codeine Sulfate 30 mg Tablet] 30 mg PO BID #5 tablet Guaifenesin/D-Methorphan Hb [Robitussin-Dm Syrup 10 ml Udcup] 10 ml PO QID #200 ml Azithromycin [Zithromax 250 mg Tablet] 250 mg PO DAILY #3 tablet Home Medications: Vimpat 300 mg PO DAILY 12/02/11 Amlodipine Besylate/Benazepril [Lotrel 10-20 mg Capsule] 1 cap PO QPM 08/02/16 Rosuvastatin Calcium [Crestor 10 mg Tablet] 10 mg PO QPM 08/02/16 Albuterol Sulfate [Proair HFA Inhalation Aerosol 8.5 gm MDI] 2 puff IH Q4HP PRN 11/29/19 Albuterol Sulfate [Ventolin 0.083% Neb 2.5 mg/3 mL Ampul] 1 vial NEB BIDP PRN 11/29/19 Diazepam [Diastat Acudial 20 mg/4 ml Rectal Gel] 20 mg HI ASDIR PRN 11/29/19 Donepezil HCl 10 mg PO DAILY 11/29/19 Epinephrine [Epipen] 0.3 mg IJ ASDIR PRN 11/29/19 Fexofenadine HCl [Alecia Allergy] 180 mg PO DAILY 11/29/19 Fluticasone Propionate [Flonase Nasal Roma 50 Mcg/Roma 16 gm] 1 spray NASL Q12 11/29/19 Ibuprofen [Ibu] 800 mg PO TID 11/29/19 Lorazepam [Ativan 1 mg Tablet] 1 mg PO TIDP PRN 11/29/19 Pantoprazole Sodium [Protonix [address] Tablet] 40 mg PO QAM 11/29/19 Polyvinyl Alcohol [Liquitears 1.4% Ophth Soln 15 ml] 1 drop OU DAILYP PRN 11/29/19 Potiga 300 mg PO TID 11/29/19 Prednisolone Acetate [Pred Forte] 1 drop OU BID 11/29/19 Valacyclovir HCl [Valtrex 500 mg Tablet] 500 mg PO DAILY 11/29/19 Vilazodone HCl [Viibryd] 40 mg PO BID 11/29/19 Azithromycin [Zithromax 250 mg Tablet] 250 mg PO DAILY #3 tablet 11/30/19 Codeine Sulf [Codeine Sulfate 30 mg Tablet] 30 mg PO BID #5 tablet 11/30/19 Guaifenesin/D-Methorphan Hb [Robitussin-Dm Syrup 10 ml Udcup] 10 ml PO QID #200 ml 11/30/19 History of Present Illiness History of Present Illness: FLORENTIN RICHARDS is a 54 year old male asthma, seasonal allergies, BANDAR on CPAP, epilepsy, headaches and Botox, hypertension, hyperlipidemia, who presents to the hospital with complaints of persistent cough. Patient has been having nonproductive cough for the past 10 days with sputum production and developed hemoptysis yesterday. Patient claims he was recently taking a trip to [place] and went to the [facility] with his and subsequently became sick on return to [place]. Patient denies any other trips to any other locations recently. Patient admitted to initially having some fevers and chills which have both resolved at this time but the cough has persisted. He had tried Tessalon Perls, prednisone 60 mg for 3 days outpatient with his primary care provider but without subsequent improvement. Did develop some dyspnea a few days ago as well. Hospital Course Hospital Course: Patient was admitted for evaluation of hemoptysis. Patient was reported to be wheezing in the ER with suspicion of asthma exacerbation. He received Solu- Medrol in the ER and placed on nebulizer treatments. On my examinations patient did not have any wheezing both on admission and today. Patient's major issue which is his hemoptysis and persistent cough is likely secondary to acute bronchitis likely bacterial given length/duration and airway irritation from coughing aggressively as well as from inflammation which led to his hemoptysis. Patient is hemoptysis was quantified from yesterday to today showing very minimal amount of hemoptysis in graduated cup. Patient did have a chest CT done which was negative. Influenza was negative. Patient's vitals remained stable and patient is cleared for discharge today. Of note patient notes improvement of his coughing after being hydrated with some IV fluids and given Robitussi n/dextromethorphan with some doses of codeine for antitussive effect. patient is being treated for his acute bronchitis with azithromycin, and encouraged to use his inhalers about 2-3 times a day for the next 3 days and with some Robitussin-DM and a few doses of codeine to help with cough suppression. He has been encouraged to stay hydrated while at home. Patient will follow-up with his primary care provider for further care. Patient does have some steroids at home which she will take for a few more days. His asthma exacerbation seems to very minimal as no recurrent wheezing throughout admission. Physical Exam Vital Signs: Temp Pulse Resp BP Pulse Ox 97.6 F 77 15 128/82 H 95 11/30/19 08:00 11/30/19 08:40 11/30/19 08:40 11/30/19 08:00 11/30/19 08:40 Intake & Output 11/29/19 11/30/19 12/01/19 06:59 06:59 06:59 Intake Total 2360 Balance 2360 Weight 135.8 kg General appearance: PRESENT: no acute distress, cooperative Respiratory exam: PRESENT: clear to auscultation saman, unlabored. ABSENT: tachypnea, wheezes Cardiovascular exam: PRESENT: +S1, +S2 Neurological exam: PRESENT: alert, awake, oriented to person, oriented to place, oriented to time Results Laboratory Results: WBC 7.2 10^3/uL (4.0-10.5) 11/29/19 09:00 RBC 5.04 10^6/uL (4.35-5.55) 11/29/19 09:00 Hgb 13.1 g/dL (13.5-17.0) L 11/29/19 09:00 Hct 39.3 % (37.9-51.0) 11/29/19 09:00 MCV 78 fl (80-97) L 11/29/19 09:00 MCH 26.0 pg (27.0-33.4) L 11/29/19 09:00 MCHC 33.3 g/dL (32.0-36.0) 11/29/19 09:00 RDW 14.2 % (11.5-14.0) H 11/29/19 09:00 Plt Count 266 10^3/uL (150-450) 11/29/19 09:00 Lymph % (Auto) 32.7 % (13-45) 11/29/19 09:00 Schley % (Auto) 7.3 % (3-13) 11/29/19 09:00 Eos % (Auto) 1.0 % (0-6) 11/29/19 09:00 Baso % (Auto) 0.3 % (0-2) 11/29/19 09:00 Absolute Neuts (auto) 4.2 10^3/uL (1.7-8.2) 11/29/19 09:00 Absolute Lymphs (auto) 2.4 10^3/uL (0.5-4.7) 11/29/19 09:00 Absolute Monos (auto) 0.5 10^3/uL (0.1-1.4) 11/29/19 09:00 Absolute Eos (auto) 0.1 10^3/uL (0.0-0.6) 11/29/19 09:00 Absolute Basos (auto) 0.0 10^3/uL (0.0-0.2) 11/29/19 09:00 Seg Neutrophils % 58.7 % (42-78) 11/29/19 09:00 Sodium 140.1 mmol/L (137-145) 11/29/19 09:00 Potassium 3.6 mmol/L (3.6-5.0) 11/29/19 09:00 Chloride 104 mmol/L (98-107) 11/29/19 09:00 Carbon Dioxide 28 mmol/L (22-30) 11/29/19 09:00 Anion Gap 8 (5-19) 11/29/19 09:00 BUN 11 mg/dL (7-20) 11/29/19 09:00 Creatinine 0.78 mg/dL (0.52-1.25) 11/29/19 09:00 Est GFR ( Amer) > 60 (>60) 11/29/19 09:00 Est GFR (MDRD) Non-Af > 60 (>60) 11/29/19 09:00 Glucose 140 mg/dL (75-110) H 11/29/19 09:00 Calcium 8.9 mg/dL (8.4-10.2) 11/29/19 09:00 Total Bilirubin 0.4 mg/dL (0.2-1.3) 11/29/19 09:00 Direct Bilirubin 0.0 mg/dL (0.0-0.4) 11/29/19 09:00 Neonat Total Bilirubin Not Reportable 11/29/19 09:00 Neonat Direct Bilirubin Not Reportable 11/29/19 09:00 Neonat Indirect Bili Not Reportable 11/29/19 09:00 AST 20 U/L (17-59) 11/29/19 09:00 ALT 20 U/L (<50) 11/29/19 09:00 Alkaline Phosphatase 72 U/L (38-126) 11/29/19 09:00 Total Protein 6.9 g/dL (6.3-8.2) 11/29/19 09:00 Albumin 3.8 g/dL (3.5-5.0) 11/29/19 09:00 Urine Color YELLOW 11/29/19 09:00 Urine Appearance CLEAR 11/29/19 09:00 Urine pH 6.0 (5.0-9.0) 11/29/19 09:00 Ur Specific [place] 1.014 11/29/19 09:00 Urine Protein NEGATIVE mg/dL (NEGATIVE) 11/29/19 09:00 Urine Glucose (UA) NEGATIVE mg/dL (NEGATIVE) 11/29/19 09:00 Urine Ketones NEGATIVE mg/dL (NEGATIVE) 11/29/19 09:00 Urine Blood SMALL (NEGATIVE) H 11/29/19 09:00 Urine Nitrite NEGATIVE (NEGATIVE) 11/29/19 09:00 Urine Bilirubin NEGATIVE (NEGATIVE) 11/29/19 09:00 Urine Urobilinogen NEGATIVE mg/dL (<2.0) 11/29/19 09:00 Ur Leukocyte Esterase NEGATIVE (NEGATIVE) 11/29/19 09:00 Urine WBC (Auto) 1 /HPF 11/29/19 09:00 Urine RBC (Auto) 3 /HPF 11/29/19 09:00 Squamous Epi Cells Auto <1 /HPF 11/29/19 09:00 Urine Mucus (Auto) RARE /LPF 11/29/19 09:00 Urine Ascorbic Acid NEGATIVE (NEGATIVE) 11/29/19 09:00 Influenza A (Rapid) NEGATIVE (NEGATIVE) 11/29/19 13:31 Influenza B (Rapid) NEGATIVE (NEGATIVE) 11/29/19 13:31 Impressions: Chest X-Ray 11/29/19 00:00 IMPRESSION: No acute cardiopulmonary process. Chest CT 11/29/19 12:26 IMPRESSION: No acute cardiopulmonary process. Plan Time Spent: Less than 30 Minutes Stroke Is this a Stroke Patient?: No Acute Heart Failure - Is this a Heart Failure Patient?: No
== END 2019-11-30 13:40 | disposition home or self-care (01) ==
LOC: ER 08:25 → EH 14:29 → 4N 21:02
PROVIDERS: ADMIT Internal Medicine; ATTEND Internal Medicine
DX: J20.9 Acute bronchitis, unspecified (principal); R04.2 Hemoptysis; J45.909 Unspecified asthma, uncomplicated; I10 Essential (primary) hypertension; G47.33 Obstructive sleep apnea (adult) (pediatric); G40.909 Epilepsy, unspecified, not intractable, without status epilepticus; J30.2 Other seasonal allergic rhinitis; E78.5 Hyperlipidemia, unspecified; I25.10 Atherosclerotic heart disease of native coronary artery without angina pectoris; Z79.899 Other long term (current) drug therapy; Z97.8 Presence of other specified devices
CPT/HCPCS: 93005; 94640 ×3; 99291; 96361; 96365; 36415; 87070; 87205; 85025; 87077; 80053; 81001; 87186; 87804; 71046; 71250; 93010; 94660 ×2; G0378 ×3; J3490 ×8; J2920; J3475; J7030 ×2; J7620 ×2

== ENCOUNTER → 2019-12-06 | Outpatient (CLI) | payer OTHER ==
--- NOTE | 2019-12-06 14:50 | RADIOLOGY REPORT (SQ) ---
EXAM DESCRIPTION: CT LUMBAR SPINE WITHOUT COMPLETED DATE/TIME: 12/06/2019 1:04 pm REASON FOR STUDY: M51.36 OTHER INTERVERTEBRAL DISC DEGENERATION, LUMBAR REGION M51.36 OTHER INTERVE RTEBRAL DISC DEGENERATION, LUMBAR REGION COMPARISON: None. TECHNIQUE: Axial images acquired through the lumbar spine without intravenous contrast. Images revi ewed with lung, soft tissue and bone windows. Reconstructed coronal and sagittal MPR images reviewed . All images stored on PACS. All CT scanners at this facility use dose modulation, iterative reconstruction, and/or weight based d osing when appropriate to reduce radiation dose to as low as reasonably achievable (ALARA). [facility]: Dose Right [facility]: CareDose [facility]: Dose Right [facility]: Teradose 4D [facility]: [employer] RADIATION DOSE: CT Rad equipment meets quality standard of care and radiation dose reduction techniq ues were employed. CTDIvol: 32.8 mGy. DLP: 1020 mGy-cm. mGy. LIMITATIONS: None. FINDINGS: SEGMENTATION: Normal. No transitional anatomy. ALIGNMENT: Normal. VERTEBRAL BODIES: No fractures. No dislocation. No acute findings. DISCS: 15 12-L1, L1-2, L2-3, and L3-4 levels are unremarkable. No significant central canal or ely inal stenosis. At L4-5, minimal posterior disc bulging, mild bilateral facet and ligament hypertrophy is present wit hout significant central or foraminal stenosis. At L5-S1, moderate bilateral facet arthropathy is present right greater than left. No central or for aminal stenosis. PEDICLES, TRANSVERSE PROCESSES: No fractures. No dislocation. No acute findings. FACETS, POSTERIOR ELEMENTS: No fractures. No dislocation. HARDWARE: None in the spine. VISUALIZED RIBS: No fractures. SOFT TISSUES: No significant or acute finding in adjacent soft tissues. OTHER: Mild bilateral SI joint vacuum phenomenon and bony spurring. IMPRESSION: Facet arthropathy at L4-5 and L5-S1. Bilateral SI joint arthropathy TECHNICAL DOCUMENTATION: JOB ID: [id number] Quality ID # [id number]: Final reports with documentation of one or more dose reduction techniques (e.g., Au tomated exposure control, adjustment of the mA and/or kV according to patient size, use of iterative reconstruction technique) 2010 [employer]- All Rights Reserved Reading location - IP/workstation name: [email or web address]
== END ==
LOC: RAD 12:50
PROVIDERS: ATTEND Physician Assistant
DX: M51.36 Other intervertebral disc degeneration, lumbar region (principal); M47.896 Other spondylosis, lumbar region
CPT/HCPCS: 72131

== ENCOUNTER → 2020-05-01 | Outpatient (CLI) | payer MEDICARE, OTHER ==
--- NOTE | 2020-05-01 10:17 | ST Modified Barium Swallow ---
Recommendation - Recommendations Recommendations: Oral and pharyngeal swallowing within normal limits. Medical Diagnoses - Medical Diagnoses Medical Diagnosis Description & ICD-10 Code(s): R13.10 dysphagia Other Medical Diagnoses/Co-Morbidities: Per patient report: Seizures, VNS Implant 2009, Shortness of Breath, Acid Reflux, Anxiety, Asthma, COPD ST Modified Barium Swallow - General Date: 05/01/20 Referring Physician: Dr. Kimani Kellogg Risks/Precautions: Seizures Date of Onset: 04/02/05 - approximate onset - History -: Medical - Patient provided medical history. When initially asked if the patient had difficulty swallowing, he stated "no", he then stated that he had some difficulty for approximately 15 years. He reports that he will occasionally have to cough with eating/drinking, and this causes him to have trouble breathing. He also states that this may be anxiety related. Medications: Amitriptyline, Androgel, Aspirin, Ativan, Butalbital, CAMBIA, Cialis, CPAP with O2, Cyclobenzap, Diastat Gel, Donepezil, Hydrocodone, Ibuprofen, Lamictal CR, Lipitor, Lotrel,Nexium, Testosterone Topamax, Valacyclovir, Vimpat, Vibryd, Protida, Clonazepam Allergies: patient reported no allergies, medical chart reflects oxycodone allergy - Functional Status Prior Functional Status: INDEPENDENT: feeding - independent Current Functional Limitations: feeding - Subjective Patient/caregiver goal(s): safe swallow, r/o aspiration Cognitive-Linguistic Function: Functional Speech Intelligibility: WNL Current Nutritional Means: PO Current PO diet: Regular Current symptoms: Coughing Pain: Patient reports, 0/5 - Objective Assessment: Upright, Left Lateral - Food Trials Used Food trials used: Thin liquids, Pureed, Regular The patient: Was Able to Self Feed - Oral-Motor Skills Dentition: Full Laryngeal Function: clear voicing - Assessment Oral prep: Normal Labial closure: Adequate Leakage: None Mastication: Adequate Lingual Movement: Normal Oral stage: Normal for this Procedure - Pharyngeal Stage Initiation of Pharyngeal Stage Reflex: Normal Decreased laryngeal elevation: No Reduced Velopharyngeal Closure: no Reduced pressure generation: No reduced tongue-based retraction: No Pre-swallow pooling in valleculae: None Pre-Swallow pooling in pyriforms: None Reduced Thyro-Hyoid approximation: No Reduced epiglottic excursion: No Reduced pharyngeal peristalsis/contraction: No Multiple Swallows with: Effective Post-swallow residulas vallecular: None Post-Swallow residuals in pyriforms: Mild - Fall Risk Assessment Medications/Conditions that increase fall risks include: Antidepressants, sedatives, anti-arrhythmic, diuretic, benzodiazipenes, neuroleptics. BP regulation problems, cardiac problems, balance or gait deficits, neurological problems. Is patient considered at risk for falls: no Fall Risk Actions Taken: No action needed - Behavioral Observations During evaluation process patient: was cooperative, able to answer questions - Treatment / Educational Needs: Treatment/Education Needs: Treatment consisted of patient education on the role of the Speech Pathologist. Patient's plan of care and golas were communicated as well as scheduling and attendance policies. Recommendations for initial home program were shared. Patient demonstrated understanding and verbalized agreement. - Impression/Summary Laryngeal Penetration: No Tracheal Aspiration: no Patient presents with: Normal swallow at eval Risk of Aspiration: Minimal Evaluation and Findings: Oral and pharyngeal swallow function WNL. - Recommendations Solid diet recommendations: Regular Liquid Diet Modification: Thin Dysphagia therapy with ELEVATOR DISPATCHER: no Reflux Precautions: Taught to Patient Recommended techniques: Fully Upright During Meal Information, Precautions and Recommendations: Patient (Written), Patient (Verbal) - Time Total Time: 30 - Plan of Care Strategies to optimize patient understanding include:: ongoing assessment of educational needs, implementation of educational strategies, and re-education. - - -: Thank you for the opportunity to work with this patient and his/her family. Should you have any questions about this patient's plan or progress, I can be reached at [phone].
--- NOTE | 2020-05-01 12:46 | RADIOLOGY REPORT (SQ) ---
EXAM DESCRIPTION: COOKIE SWALLOW IMAGES COMPLETED DATE/TIME: 05/01/2020 9:12 am REASON FOR STUDY: DYSPHASIA (R47.02) R47.02 DYSPHASIA COMPARISON: None. TECHNIQUE: Videofluoroscopic swallowing examination was performed in conjunction with speech patholo gy. Videofluoroscopic imaging was obtained and reviewed and these are the findings: RADIATION DOSE: Fluoro time 1.31 minutes 1 images saved to PACS. LIMITATIONS: None FINDINGS: The patient was brought into the fluoro room and placed upright on a modified barium swall ow chair. The patient was then given multiple consistencies mixed with barium to swallow under live fluoroscopic video guidance. According to the Speech Pathologist there was no penetration or aspirat ion. Please refer to the speech pathology report for further details. IMPRESSION: NO EVIDENCE OF PENETRATION OR ASPIRATION. PLEASE SEE SPEECH PATHOLOGIST REPORT FOR OTHER FINDINGS AND RECOMMENDATIONS. COMMENT: None Quality ID 145: Final reports for procedures using fluoroscopy that document radiation exposure denton vaishali, or exposure time and number of fluorographic images (if radiation exposure indices are not avail able) TECHNICAL DOCUMENTATION: JOB ID: [id number] 2010 [employer]- All Rights Reserved Reading location - IP/workstation name: [email or web address] [id number]
== END ==
LOC: RAD 08:23
PROVIDERS: ATTEND Internal Medicine Pulmonary Disease
DX: R47.02 Dysphasia (principal)
CPT/HCPCS: 74230